=== PATIENT | female | born 1965 | race African-American/Black ===

== ENCOUNTER 2022-11-16 19:58 | Emergency (ER) | payer MEDICAID, OTHER ==
[~2022-11-16] VITALS: Ht 167.6 cm; Wt 80.0 kg
[2022-11-16 20:20] VITALS: BP 117/69
== END 2022-11-17 03:41 | disposition left against medical advice (07) ==
LOC: ER 19:58
DX: Z53.21 Procedure and treatment not carried out due to patient leaving prior to being seen by health care provider (principal)